=== PATIENT | female | born 1970 | race Caucasian/White ===

== ENCOUNTER 2020-09-29 08:21 | Inpatient (IN) ==
[2020-09-29] MEDS ORDERED: CeFAZolin Syr 2,000MG/20 ML 2,000 MG/20 ML SYRINGE IVPB ONE (08:51)
[2020-09-29] MEDS ORDERED: *HR* Midazolam HCl 2 MG/2 ML VIAL ONE (08:52)
[2020-09-29] MEDS ORDERED: *HR* FentaNYL (PF) 100 MCG/2 ML VIAL ONE (08:52)
[2020-09-29] MEDS ORDERED: *HR* Rocuronium Bromide 50 MG/5 ML VIAL ONE ×2 (08:53→09:55)
[2020-09-29] MEDS ORDERED: *HR* Succinylcholine 200 MG/10 ML VIAL IVP ONE (08:53)
[2020-09-29] MEDS ORDERED: Lidocaine -MPF 4% 5 ML AMPUL ONE (08:53)
[2020-09-29] MEDS ORDERED: Dexamethasone 4 MG/ML VIAL ONE (08:53)
[2020-09-29] MEDS ORDERED: Lidocaine -MPF 2% 2 ML VIAL ONE (08:53)
[2020-09-29] MEDS ORDERED: Ondansetron 4 MG/2 ML VIAL ONE (08:53)
[2020-09-29] MEDS ORDERED: *HR* Propofol 200 MG/20 ML VIAL IVP ONE (08:55)
[2020-09-29] MEDS ORDERED: Ringers Solution, Lactated 1,000 ML IVC SCH (09:00)
[2020-09-29] MEDS ORDERED: Acetaminophen IV 1,000 MG/100 ML BAG ONE (09:17)
[2020-09-29] MEDS ORDERED: Ketorolac 30 MG/ML VIAL ONE (10:02)
[2020-09-29] MEDS ORDERED: Sugammadex Sodium 200 MG/2 ML VIAL IV ONE ×3 (10:02→13:47)
[2020-09-29] MEDS ORDERED: *HR* PHENYLEPHRINE 1,000 MCG/10 ML SYRINGE IVP ONE (10:42)
[2020-09-29] MEDS ORDERED: *HR* HYDROMORPHONE 2 MG/ML VIAL ONE (11:42)
[2020-09-29] MEDS ORDERED: Ondansetron 4 MG/2 ML VIAL IVP PRN (12:15)
[2020-09-29] MEDS: 0.9 % Sodium Chloride 1,000 ML IVC SCH (12:54)
[2020-09-29] MEDS: *HR* HYDROcodone/Acet 5/325 mg TABLET PO PRN ×2 (12:56→17:02)
[2020-09-29] MEDS: *HR* Heparin 5,000 UNIT/ML VIAL SQ SCH ×2 (14:16→20:43)
[2020-09-29] MEDS: Gabapentin 300 MG CAPSULE PO SCH ×2 (14:16→20:43)
[2020-09-29] MEDS: PrednisoLONE Acetate 1% Opth 5 ML BOTTLE RIGHT EYE SCH ×5 (14:19→20:48)
[2020-09-29] MEDS: Ipratropium/Albuterol Neb 3 ML IH SCH ×2 (16:35→20:04)
[2020-09-29] MEDS: Ketorolac 15 MG/ML VIAL IVP SCH ×2 (17:02→23:09)
[2020-09-29] MEDS: Budesonide/Formoterol 80/4.5 1 PUFF INH IH SCH (20:04)
[2020-09-29] MEDS: clonazePAM 1 MG TABLET PO SCH (20:43)
[2020-09-29] MEDS: Sennosides/Docusate Sodium TABLET PO SCH (20:43)
[2020-09-29] MEDS: Famotidine 20 MG TABLET PO SCH (20:43)
[2020-09-29] MEDS: Dorzolamide/Timolol OPTH 10 ML BOTTLE RIGHT EYE SCH (20:45)
[2020-09-29] MEDS: traZODone 50 MG TABLET PO SCH (20:45)
[2020-09-30] MEDS: Ipratropium/Albuterol Neb 3 ML IH SCH ×7 (00:25→23:08)
[2020-09-30] MEDS: 0.9 % Sodium Chloride 1,000 ML IVC SCH (03:15)
[2020-09-30] MEDS: *HR* HYDROcodone/Acet 5/325 mg TABLET PO PRN ×3 (03:37→15:45)
[2020-09-30 04:48] LABS: Hematocrit 39.6 % (35.3-44.9); Hemoglobin 12.8 g/dL (11.5-15.4); Mean Corpuscular HGB Conc 32.3 g/dL (31.6-35.5); Mean Corpuscular Hemoglobin 32.6 pg (28.0-33.3); Mean Corpuscular Volume 100.8 fL (83.0-100.0); Mean Platelet Volume 9.1 fL (9.4-12.4); Platelet Count 235 K/mcL (140-400); Red Blood Count 3.93 M/mcL (3.82-4.97); Red Cell Distribution Width 13.4 % (11.5-14.5); White Blood Count 16.7 K/mcL (4.3-11.1)
[2020-09-30 05:47] LABS: % Iron Saturation 17 % (15-50); BUN/Creatinine Ratio 19 (6-26); Blood Urea Nitrogen 15 mg/dL (6-20); Calcium 8.6 mg/dL (8.6-10.3); Carbon Dioxide 22 mEq/L (23-29); Chloride 106 mEq/L (98-107); Glucose 185 mg/dL (70-105); Iron 46 mcg/dL (50-170); Magnesium 1.8 mg/dL (1.6-2.6); Osmolality,Calculated 282 (280-300); Potassium 4.6 mEq/L (3.5-5.1); Sodium 133 mEq/L (136-145); Transferrin 188 mg/dL (203-362); eGFR For African Americans > 60 (> 60); eGFR For Non-African Americans > 60 (> 60)
[2020-09-30] MEDS: Ketorolac 15 MG/ML VIAL IVP SCH ×4 (05:59→23:58)
[2020-09-30] MEDS: *HR* Heparin 5,000 UNIT/ML VIAL SQ SCH ×3 (05:59→23:58)
[2020-09-30] MEDS: PrednisoLONE Acetate 1% Opth 5 ML BOTTLE RIGHT EYE SCH ×9 (06:00→23:50)
[2020-09-30] MEDS: Sennosides/Docusate Sodium TABLET PO SCH ×2 (07:46→20:46)
[2020-09-30] MEDS: Dorzolamide/Timolol OPTH 10 ML BOTTLE RIGHT EYE SCH ×2 (07:47→20:46)
[2020-09-30] MEDS: Famotidine 20 MG TABLET PO SCH ×2 (07:47→20:46)
[2020-09-30] MEDS: Nicotine 14 MG PATCH.TD24 TD SCH (07:47)
[2020-09-30] MEDS: Gabapentin 300 MG CAPSULE PO SCH ×3 (07:47→20:46)
[2020-09-30] MEDS: Budesonide/Formoterol 80/4.5 1 PUFF INH IH SCH ×2 (08:23→19:31)
[2020-09-30] MEDS ORDERED: Iron Sucrose Complex 400 MG in 0.9 % Sodium Chloride 250 ML IVPB ONE (09:02)
[2020-09-30] MEDS: traZODone 50 MG TABLET PO SCH (20:46)
[2020-09-30] MEDS: clonazePAM 1 MG TABLET PO SCH (20:46)
[2020-10-01] MEDS: Ipratropium/Albuterol Neb 3 ML IH SCH ×5 (03:06→19:58)
[2020-10-01] MEDS: *HR* HYDROcodone/Acet 5/325 mg TABLET PO PRN (03:56)
[2020-10-01] MEDS: PrednisoLONE Acetate 1% Opth 5 ML BOTTLE RIGHT EYE SCH ×9 (05:09→22:18)
[2020-10-01] MEDS: Ketorolac 15 MG/ML VIAL IVP SCH ×3 (06:46→17:12)
[2020-10-01] MEDS: *HR* Heparin 5,000 UNIT/ML VIAL SQ SCH ×3 (06:46→22:17)
[2020-10-01] MEDS: Famotidine 20 MG TABLET PO SCH ×2 (07:39→20:34)
[2020-10-01] MEDS: Nicotine 14 MG PATCH.TD24 TD SCH (07:39)
[2020-10-01] MEDS: Sennosides/Docusate Sodium TABLET PO SCH ×2 (07:39→20:29)
[2020-10-01] MEDS: Gabapentin 300 MG CAPSULE PO SCH ×3 (07:39→20:29)
[2020-10-01] MEDS: Dorzolamide/Timolol OPTH 10 ML BOTTLE RIGHT EYE SCH ×2 (07:40→20:29)
[2020-10-01] MEDS: Budesonide/Formoterol 80/4.5 1 PUFF INH IH SCH ×2 (08:09→19:58)
[2020-10-01] MEDS: MOM Conc 10 ML UD.LIQ PO SCH (11:07)
[2020-10-01] MEDS: *HR* HYDROcodone/Acet 7.5/325 mg TABLET PO PRN ×2 (13:04→17:12)
[2020-10-01] MEDS: traZODone 50 MG TABLET PO SCH (20:29)
[2020-10-01] MEDS: clonazePAM 1 MG TABLET PO SCH (20:29)
[2020-10-02] MEDS: Ipratropium/Albuterol Neb 3 ML IH SCH ×7 (00:26→23:24)
[2020-10-02] MEDS: Ketorolac 15 MG/ML VIAL IVP SCH ×5 (01:36→17:26)
[2020-10-02] MEDS: *HR* HYDROcodone/Acet 7.5/325 mg TABLET PO PRN ×2 (02:44→15:29)
[2020-10-02 04:48] LABS: Hematocrit 34.5 % (35.3-44.9); Mean Corpuscular HGB Conc 32.2 g/dL (31.6-35.5); Mean Corpuscular Hemoglobin 32.7 pg (28.0-33.3); Mean Corpuscular Volume 101.8 fL (83.0-100.0); Mean Platelet Volume 8.9 fL (9.4-12.4); Platelet Count 235 K/mcL (140-400); Red Blood Count 3.39 M/mcL (3.82-4.97); Red Cell Distribution Width 14.5 % (11.5-14.5); White Blood Count 13.2 K/mcL (4.3-11.1)
[2020-10-02 04:51] LABS: Hemoglobin 11.1 g/dL (11.5-15.4)
[2020-10-02 05:07] LABS: BUN/Creatinine Ratio 21 (6-26); Blood Urea Nitrogen 14 mg/dL (6-20); Calcium 8.1 mg/dL (8.6-10.3); Carbon Dioxide 23 mEq/L (23-29); Chloride 110 mEq/L (98-107); Glucose 121 mg/dL (70-105); Magnesium 1.7 mg/dL (1.6-2.6); Osmolality,Calculated 288 (280-300); Potassium 4.2 mEq/L (3.5-5.1); Sodium 138 mEq/L (136-145); eGFR For African Americans > 60 (> 60); eGFR For Non-African Americans > 60 (> 60)
[2020-10-02] MEDS: PrednisoLONE Acetate 1% Opth 5 ML BOTTLE RIGHT EYE SCH ×8 (06:42→20:28)
[2020-10-02] MEDS: *HR* Heparin 5,000 UNIT/ML VIAL SQ SCH ×3 (06:43→20:29)
[2020-10-02] MEDS: MOM Conc 10 ML UD.LIQ PO SCH (07:38)
[2020-10-02] MEDS: Famotidine 20 MG TABLET PO SCH ×2 (07:39→20:27)
[2020-10-02] MEDS: Gabapentin 300 MG CAPSULE PO SCH ×3 (07:39→20:27)
[2020-10-02] MEDS: Sennosides/Docusate Sodium TABLET PO SCH ×2 (07:39→20:27)
[2020-10-02] MEDS: Nicotine 14 MG PATCH.TD24 TD SCH (07:39)
[2020-10-02] MEDS: Dorzolamide/Timolol OPTH 10 ML BOTTLE RIGHT EYE SCH ×2 (07:42→20:28)
[2020-10-02] MEDS: Budesonide/Formoterol 80/4.5 1 PUFF INH IH SCH ×2 (07:51→20:37)
[2020-10-02] MEDS: clonazePAM 1 MG TABLET PO SCH (20:27)
[2020-10-02] MEDS: traZODone 50 MG TABLET PO SCH (20:27)
[2020-10-03] MEDS: PrednisoLONE Acetate 1% Opth 5 ML BOTTLE RIGHT EYE SCH ×9 (00:28→22:36)
[2020-10-03] MEDS: Ketorolac 15 MG/ML VIAL IVP SCH ×4 (00:37→18:46)
[2020-10-03] MEDS: Ipratropium/Albuterol Neb 3 ML IH SCH ×6 (03:54→23:32)
[2020-10-03] MEDS: *HR* Heparin 5,000 UNIT/ML VIAL SQ SCH ×3 (05:15→20:20)
[2020-10-03] MEDS: Budesonide/Formoterol 80/4.5 1 PUFF INH IH SCH ×2 (08:01→19:33)
[2020-10-03] MEDS: Sennosides/Docusate Sodium TABLET PO SCH ×2 (08:02→20:20)
[2020-10-03] MEDS: Gabapentin 300 MG CAPSULE PO SCH ×3 (08:02→20:19)
[2020-10-03] MEDS: Famotidine 20 MG TABLET PO SCH ×2 (08:02→20:20)
[2020-10-03] MEDS: MOM Conc 10 ML UD.LIQ PO SCH (08:03)
[2020-10-03] MEDS: Nicotine 14 MG PATCH.TD24 TD SCH (08:03)
[2020-10-03] MEDS: Dorzolamide/Timolol OPTH 10 ML BOTTLE RIGHT EYE SCH ×3 (08:04→20:23)
[2020-10-03] MEDS: *HR* HYDROcodone/Acet 7.5/325 mg TABLET PO PRN (08:15)
[2020-10-03] MEDS: clonazePAM 1 MG TABLET PO SCH (20:19)
[2020-10-03] MEDS: traZODone 50 MG TABLET PO SCH (20:20)
[2020-10-04] MEDS: Ketorolac 15 MG/ML VIAL IVP SCH ×2 (00:52→06:39)
[2020-10-04] MEDS: Ipratropium/Albuterol Neb 3 ML IH SCH ×2 (04:15→07:53)
[2020-10-04] MEDS: PrednisoLONE Acetate 1% Opth 5 ML BOTTLE RIGHT EYE SCH ×2 (06:13→08:37)
[2020-10-04] MEDS: *HR* Heparin 5,000 UNIT/ML VIAL SQ SCH (06:39)
[2020-10-04 06:59] VITALS: BP 116/58
[2020-10-04] MEDS: Budesonide/Formoterol 80/4.5 1 PUFF INH IH SCH (07:53)
[2020-10-04] MEDS: Nicotine 14 MG PATCH.TD24 TD SCH (08:34)
[2020-10-04] MEDS: MOM Conc 10 ML UD.LIQ PO SCH (08:35)
[2020-10-04] MEDS: Sennosides/Docusate Sodium TABLET PO SCH (08:35)
[2020-10-04] MEDS: Famotidine 20 MG TABLET PO SCH (08:35)
[2020-10-04] MEDS: Gabapentin 300 MG CAPSULE PO SCH (08:35)
== END 2020-10-04 10:27 | disposition home or self-care (01) | DRG 165 ==
LOC: SAMDAY 08:21 → ICNU 12:43 → 2NNU 09-30 17:26
PROVIDERS: ADMIT Thoracic Surgery (Cardiothoracic Vascular Surgery); ATTEND Thoracic Surgery (Cardiothoracic Vascular Surgery)

== ENCOUNTER 2020-12-06 17:23 | Observation (INO) ==
[2020-12-06] MEDS ORDERED: 0.9 % Sodium Chloride 500 ML IVC ONE (18:47)
[2020-12-06 19:04] LABS: Eosinophils # 0.1 K/mcL (0.0-0.6); Eosinophils % 0.7 %; Hematocrit 42.8 % (35.3-44.9); Hemoglobin 13.9 g/dL (11.5-15.4); Immature Granulocytes % 1.7 % (0-4); Lymphocytes # 2.1 K/mcL (0.6-4.6); Lymphocytes % 13.1 %; Mean Corpuscular HGB Conc 32.5 g/dL (31.6-35.5); Mean Corpuscular Hemoglobin 31.2 pg (28.0-33.3); Mean Corpuscular Volume 96.2 fL (83.0-100.0); Mean Platelet Volume 9.5 fL (9.4-12.4); Monocytes # 0.2 K/mcL (0.0-1.3); Monocytes % 1.3 %; Neutrophils # 13.5 K/mcL (1.6-8.9); Platelet Count 120 K/mcL (140-400); Red Blood Count 4.45 M/mcL (3.82-4.97); Red Cell Distribution Width 13.5 % (11.5-14.5); Segmented Neutrophils % 83.2 %; White Blood Count 16.2 K/mcL (4.3-11.1)
[2020-12-06 19:18] LABS: BUN/Creatinine Ratio 30 (6-26); Blood Urea Nitrogen 24 mg/dL (6-20); Calcium 8.2 mg/dL (8.6-10.3); Carbon Dioxide 23 mEq/L (23-29); Chloride 105 mEq/L (98-107); Glucose 189 mg/dL (70-105); Osmolality,Calculated 293 (280-300); Potassium 3.4 mEq/L (3.5-5.1); Sodium 137 mEq/L (136-145); eGFR For African Americans > 60 (> 60); eGFR For Non-African Americans > 60 (> 60)
[2020-12-06 19:26] LABS: Platelet Estimate Slight Decrease (Normal)
[2020-12-06] MEDS ORDERED: Isovue-370 500 ML BOTTLE IVP ONE (19:43)
[2020-12-06 20:41] LABS: Bilirubin,Urine Negative (Negative); Blood,Urine Small (Negative); Clarity,Urine Clear (Clear); Color,Urine Yellow (Yellow); Glucose,Urine (UA) Normal (Normal); Ketones,Urine Negative (Negative); Leukocyte Esterase,Urine Negative (Negative); Mucus,Urine Few per lpf (None-Few); Nitrite,Urine Negative (Negative); PH,Urine 6.5 pH Units (5.0-8.0); Protein,Urine Trace mg/dL (Neg-Trace); RBC,Urine 15-30 per hpf (0-3); Specific Gravity,Urine 1.026 (1.010-1.025); Squamous Epithelial Cell,Urine Few per hpf (None-Few)
[2020-12-06] MEDS ORDERED: Ondansetron 4 MG/2 ML VIAL IVP ONE (22:36)
[2020-12-07] MEDS ORDERED: Naloxone 0.4 MG/ML INJ IVP PRN (00:55)
[2020-12-07] MEDS ORDERED: Acetaminophen 325 MG TABLET PO PRN (00:55)
[2020-12-07] MEDS ORDERED: Ondansetron 4 MG/2 ML VIAL IVP PRN (00:55)
[2020-12-07] MEDS ORDERED: 0.9 % Sodium Chloride 1,000 ML IVC SCH (01:00)
[2020-12-07] MEDS: clonazePAM 1 MG TABLET PO SCH ×2 (01:20→21:51)
[2020-12-07] MEDS: traZODone 50 MG TABLET PO SCH ×2 (01:26→21:51)
[2020-12-07 02:20] LABS: Eosinophils # 0.2 K/mcL (0.0-0.6); Eosinophils % 1.6 %; Hemoglobin 14.1 g/dL (11.5-15.4); Immature Granulocytes % 1.9 % (0-4); Lymphocytes # 2.4 K/mcL (0.6-4.6); Lymphocytes % 16.1 %; Mean Corpuscular HGB Conc 32.8 g/dL (31.6-35.5); Mean Corpuscular Hemoglobin 30.9 pg (28.0-33.3); Mean Corpuscular Volume 94.3 fL (83.0-100.0); Mean Platelet Volume 9.2 fL (9.4-12.4); Monocytes # 0.4 K/mcL (0.0-1.3); Monocytes % 2.5 %; Neutrophils # 11.6 K/mcL (1.6-8.9); Platelet Count 110 K/mcL (140-400); Red Blood Count 4.56 M/mcL (3.82-4.97); Red Cell Distribution Width 13.5 % (11.5-14.5); Segmented Neutrophils % 77.9 %; White Blood Count 14.9 K/mcL (4.3-11.1)
[2020-12-07 02:34] LABS: Alanine Aminotransferase 61 Units/L (7-52); Albumin 3.1 g/dL (3.5-5.7); Albumin/Globulin Ratio 1.1 (1.1-2.2); Alkaline Phosphatase 130 Units/L (34-104); Aspartate Amino Transferase 42 Units/L (13-39); BUN/Creatinine Ratio 28 (6-26); Bilirubin,Total 1.6 mg/dL (0.3-1.0); Blood Urea Nitrogen 21 mg/dL (6-20); Calcium 8.4 mg/dL (8.6-10.3); Carbon Dioxide 25 mEq/L (23-29); Chloride 106 mEq/L (98-107); Globulin 2.8 g/dL (2.4-3.5); Glucose 113 mg/dL (70-105); Osmolality,Calculated 288 (280-300); Potassium 3.6 mEq/L (3.5-5.1); Sodium 137 mEq/L (136-145); Total Protein 5.9 g/dL (6.4-8.9); eGFR For African Americans > 60 (> 60); eGFR For Non-African Americans > 60 (> 60)
[2020-12-07 02:41] LABS: Platelet Estimate Slight Decrease (Normal); Smudge Cells Present (Not Present)
[2020-12-07] MEDS: *HR* Heparin 5,000 UNIT/ML VIAL SQ SCH ×3 (05:46→21:52)
[2020-12-07] MEDS: Budesonide/Formoterol 160/4.5 1 PUFF INH IH SCH ×2 (09:46→20:02)
[2020-12-08] MEDS: *HR* Heparin 5,000 UNIT/ML VIAL SQ SCH (06:13)
[2020-12-08 10:07] LABS: Alanine Aminotransferase 49 Units/L (7-52); Albumin 2.9 g/dL (3.5-5.7); Albumin/Globulin Ratio 1.2 (1.1-2.2); Alkaline Phosphatase 100 Units/L (34-104); Aspartate Amino Transferase 31 Units/L (13-39); BUN/Creatinine Ratio 19 (6-26); Blood Urea Nitrogen 14 mg/dL (6-20); Calcium 8.6 mg/dL (8.6-10.3); Carbon Dioxide 27 mEq/L (23-29); Chloride 106 mEq/L (98-107); Globulin 2.4 g/dL (2.4-3.5); Glucose 110 mg/dL (70-105); Osmolality,Calculated 285 (280-300); Potassium 3.5 mEq/L (3.5-5.1); Sodium 137 mEq/L (136-145); Total Protein 5.3 g/dL (6.4-8.9); eGFR For African Americans > 60 (> 60); eGFR For Non-African Americans > 60 (> 60)
[2020-12-08 10:50] VITALS: BP 106/69
[2020-12-08] MEDS: Budesonide/Formoterol 160/4.5 1 PUFF INH IH SCH (10:57)
== END 2020-12-08 13:31 | disposition home or self-care (01) ==
LOC: EMEROOARM 17:23 → 3BNU 17:23
PROVIDERS: ADMIT Internal Medicine; ATTEND Internal Medicine